=== PATIENT | female | born 1980 | race Caucasian/White ===

== ENCOUNTER → 2016-07-13 | Day surgery (SDC) | payer OTHER ==
[~2016-07-13] MED LIST: PHENDIMETRAZIN105 MG PO; WEIGHT LOSS MED; Z-PACK; ZETIA PO
--- NOTE | ~2016-07-13 | OR ---
Unit #: [id number] #: [id number] Patient: BAHMAN BABB [id number] [address] [id number] [id number] MR#: [id number] NAME: BAHMAN BABB ROOM: Date of Procedure: 07/13/2016 Admission Date: 07/13/2016 Surgeon: Dennis Aviles M.D. : 1980 Attending Physician: Dennis Aviles M.D. Referring Physician: Dennis Aviles M.D. Primary Care Physician: Monty Lindsey M.D. OPERATIVE REPORT PREOPERATIVE DIAGNOSIS Left shoulder Bankart labral tear. POSTOPERATIVE DIAGNOSIS Left shoulder Bankart labral tear. PROCEDURE PERFORMED Left shoulder arthroscopic Bankart repair with capsulorrhaphy, 20559. ENTRY LEVEL ACCOUNTING CLERK Lorne Cardenas CFA. ANESTHESIA General endotracheal. COMPLICATIONS None. SPECIMENS None. DRAINS None. SURGICAL IMPLANTS Three Biomet 1.5 mm JuggerKnot suture anchors. INDICATION FOR PROCEDURE Ms. 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 She had been able to take care of this on her own until recently she was giving somebody a hug and her shoulder popped out of place. She had go to the emergency room to have it reduced. Since that time, she has noted instability. She does not trust her shoulder. MRI with contrast was performed noting a stripping of the anterior labrum and capsule. She was also noted to have a Hill-Sachs lesion. We had a long discussion regarding options. The patient wished to proceed with surgical intervention to account for the instability. Risks, benefits, and alternatives of the surgery were discussed with the patient. Informed consent was obtained. Risks include, but not limited to, infection, bleeding, nerve injury, blood clots, risks associated with anesthesia, need for further surgery, and possibly . Unit #: [id number] #: [id number] Patient: BAHMAN BABB DESCRIPTION OF PROCEDURE On 07/13/2016, the patient was seen in the preop holding area, where her surgical site was marked. Preoperative antibiotics were received. H and P and consent updated. Preoperative block performed. The patient was taken to the operating room and placed on the operative table in supine position. General anesthesia was provided without complication. She was moved to the right lateral decubitus position. Left upper extremity was prepped and draped in typical sterile fashion. Time-out performed confirming the correct surgical site and procedure. At this point, an 11-blade was used to make a standard posterior portal. A blunt trocar carefully inserted into the glenohumeral joint. Full inventory of the shoulder was performed. Articular cartilage intact. Biceps then intact. Rotator cuff intact. There was a posterior Hill-Sachs lesion noted. There was stripping of the anterior-inferior labrum as well as capsular distention. Based on these findings, it was felt that she would benefit from anterior labral and capsulorrhaphy. Two cannulas were placed through the rotator interval. At this point, the bur was used to prepare the leading edge of the anterior inferior glenoid. Next, the curved 1.5 mm guide was placed on the bone. The JuggerKnot suture anchor was placed. Sutures were shuttled. A 30-degree left suture passer was used to mcdonald the capsule and labrum. The capsule and labrum were then tied back down to the glenoid. The knot was kept on the capsular side. The knots were cut flush with the sutures. This was performed 3 times starting at the 05:30 position and working up to the 3 o'clock position. Once this was complete, the capsule was noted to be reduced well along with the labrum. The Hill-Sachs lesion was re-evaluated. It was felt to be stable and not requiring a Remplissage procedure. Final images were taken. Arthroscope and instruments were removed from the shoulder. Nylon sutures placed for skin incisions. Xeroform, 4x4s, ABD pad, and tape were placed. A sling immobilizer was placed. The patient was subsequently awakened from general anesthesia in stable condition and taken to PACU postoperatively. POSTOPERATIVE PLAN The patient will be discharged home. She can do pendulums and elbow motion. Otherwise, she will be in a sling. She will follow up in my office in 7 days. No complications encountered during this procedure. Dictated by... Dennis Aviles M.D. BETH/nuno TD: 07/14/2016 06:59 JOB #: [id number] OPERATIVE REPORT Page 1 of 1 X X PROCEDURE OPERATIVE NOTE
== END | disposition home or self-care (01) ==
LOC: CSUR 07:44
DX: M24.812 Other specific joint derangements of left shoulder, not elsewhere classified (principal); M25.312 Other instability, left shoulder; M25.812 Other specified joint disorders, left shoulder; Z88.0 Allergy status to penicillin; Z91.040 Latex allergy status
CPT/HCPCS: 84703; C1713; J0171; J2250; J2795; J3010